=== PATIENT | male | born 1960 | race Two or more races ===

== ENCOUNTER 2019-11-25 10:11 | Emergency (ER) | payer SELFPAY ==
[~2019-11-25] VITALS: Ht 170.2 cm; Wt 72.6 kg
[2019-11-25 10:17] VITALS: BP 126/85
--- NOTE | 2019-11-25 11:09 | Emergency Room Report ---
History of Present Illness General Chief Complaint: Back Pain-No Injury Source: Patient, EMS Present Illness HPI Patient is a 59-year-old male who presents for increased back pain. He denies any back pain currently. Patient states that he had previous episodes of back pain in the past but does not have any pain recently. He reports having multiple alcoholic drinks earlier today. Patient states he drinks daily. Denies any current discomfort. Had not been of any vomiting. Denies any other complaints currently. Allergies: Coded Allergies: No Known Allergies (Unverified , 11/25/19) COVID-19 Screening Contact w/high risk pt: No Experienced COVID-19 symptoms?: No COVID-19 Testing performed WASTE [employer]ER: No Patient History Past Medical History: see triage record Reviewed Nursing Documentation: PMH: Agreed; PSxH: Agreed Nursing Documentation-PM Past Medical History: No History, Except For Review of Systems All Other Systems: negative except mentioned in HPI Physical Exam Vital Signs Date Time Temp Pulse Resp B/P (MAP) Pulse Ox O2 Delivery O2 Flow Rate FiO2 11/25/19 10:05 98.4 59 16 126/85 (99) 97 Room Air General Appearance: no apparent distress, alert, GCS 15, non-toxic, Chronically Ill Head: normocephalic, atraumatic ENT: hearing grossly normal, normal voice Neck: full range of motion, supple Respiratory: no respiratory distress, speaking full sentences Cardiovascular #1: normal inspection, no edema Gastrointestinal: normal inspection, non tender, soft Musculoskeletal: normal inspection Neurologic: alert, motor strength/tone normal, trade mark attorney III-XII nml as tested, oriented x3, normal gait Psychiatric: mood/affect normal Skin: no rash Medical Decision Making Diagnostic Impression: Primary Impression: Alcohol intoxication ER Course Patient presented for reported back pain. Patient denies any back pain currently. Differential diagnosis include was not limited to alcohol intoxication, chronic pain exacerbation among others. He states he was only drinking alcohol earlier in the day. He denies any pain to his back for anyOther complaints. Patient appears to be intoxicated with alcohol slightly. He has full range of motion of his back. There is no tenderness noted. Patient was allowed to sober in the emergency department. Patient had gradual improvement of confusion. By the time of discharge the patient was alert and ambulatory without assistance and had a good plan for self care. Patient is stable for discharge from emergency Department. Patient was advised to stop drinking alcohol and to followup with outpatient therapy for alcohol treatment. The patient is advised to follow up with primary care doctor in 1-2 days. Patient is advised to return if any worsening condition or if any changes in status that are concerning. This report is dictated with [employer] managed care manager software which may occasionally lead to discrepancies related to use of this software. Last Vital Signs Date Time Temp Pulse Resp B/P (MAP) Pulse Ox O2 Delivery O2 Flow Rate FiO2 11/25/19 10:17 98.4 82 16 126/85 97 Room Air Status: improved Disposition: HOME, SELF-CARE Condition: Stable Kenneth Garcia MD Nov 25, 2019 11:09
[2019-11-25 12:15] VITALS: BP 133/82
[2019-11-25 13:26] VITALS: BP 129/83
== END 2019-11-25 13:25 | disposition home or self-care (01) ==
LOC: EDBD 10:11 → EMR 10:30
DX: F10.129 Alcohol abuse with intoxication, unspecified (principal)
CPT/HCPCS: 99281